=== PATIENT | female | born 1985 ===

== ENCOUNTER 2017-10-10 14:17 | Emergency (ER) | payer MEDICAID, OTHER ==
[2017-10-10 14:25] VITALS: BP 112/77; PULSE 115; RESP 18; TEMP 98; O2SAT 98
--- NOTE | 2017-10-10 14:53 | C.PDOC ---
History Of Present Illness Pt was called by name in all areas of ED without answer. Pt left prior to medical evaluation. Time Seen by Provider: 10/10/17 14:34 Chief Complaint (Nursing): Abdominal Pain Past Medical History Vital Signs: Last Vital Signs Temp 98 F 10/10/17 14:22 Pulse 115 H 10/10/17 14:22 Resp 18 10/10/17 14:22 BP 112/77 10/10/17 14:22 Pulse Ox 98 10/10/17 14:22 Family History: States: No Known Family Hx - Social History Hx Alcohol Use: No Hx Substance Use: No - Immunization History Hx Tetanus Toxoid Vaccination: No Hx Influenza Vaccination: No Hx Pneumococcal Vaccination: No ED Course And Treatment O2 Sat by Pulse Oximetry: 98 Disposition - Disposition Disposition: LEFT W/O BEING SEEN - ER ONLY Disposition Time: 14:52 Condition: STABLE - Clinical Impression Clinical Impression: Abdominal pain
== END 2017-10-10 14:34 | disposition left against medical advice (07) ==
LOC: C.ER 14:17
DX: Z02.89 Encounter for other administrative examinations (principal); R10.9 Unspecified abdominal pain